=== PATIENT | female | born 1950 | race Caucasian/White ===

== ENCOUNTER 2024-05-12 17:55 | Emergency (ER) | payer OTHER, MEDICAID ==
[~2024-05-12] VITALS: Ht 162.6 cm; Wt 72.6 kg
[2024-05-12] MEDS ORDERED: LORA0.5T48 PO (18:22)
[2024-05-12] MEDS ORDERED: METO-357 PO (18:22)
[2024-05-12] MEDS ORDERED: LEVO125T8 PO (18:22)
[2024-05-12] MEDS ORDERED: ROSU5TAB PO (18:22)
[2024-05-12] MEDS ORDERED: WARF-68 PO (18:22)
[2024-05-12] MEDS ORDERED: SACU1TAB7 PO (18:22)
[2024-05-12] MEDS ORDERED: GABA-532 PO (18:22)
[2024-05-12] MEDS ORDERED: ESCI10TA PO (18:22)
[2024-05-12] MEDS ORDERED: LORAZEPAM 0.5 MG TABLET PO ONE (18:45)
[2024-05-12 18:49] LABS: BASOPHILS % (AUTO) 0.7 % (0.0-2.0); EOSINOPHILS # (AUTO) 0.1 K/uL (0.0-0.7); EOSINOPHILS % (AUTO) 1.6 % (0.0-7.0); HEMATOCRIT 36.9 % (31.2-41.9); HEMOGLOBIN 12.2 g/dL (10.9-14.3); LYMPHOCYTES # (AUTO) 0.9 K/uL (0.8-4.8); LYMPHOCYTES % (AUTO) 14.8 % (20.5-51.5); MEAN CORPUSCULAR HEMOGLOBIN 28.6 uug (24.7-32.8); MEAN CORPUSCULAR HGB CONC 33 g/dL (32.3-35.6); MEAN CORPUSCULAR VOLUME 86.7 fL (75.5-95.3); MONOCYTES # (AUTO) 0.7 K/uL (0.1-1.30); MONOCYTES % (AUTO) 11.3 % (0.0-11.0); NEUTROPHILS # (AUTO) 4.4 K/uL (1.8-8.9); NEUTROPHILS % (AUTO) 71.6 % (38.5-71.5); PLATELET COUNT (AUTO) 208 K/uL (179-408); RED BLOOD CELL COUNT(AUTO) 4.25 MIL/uL (3.63-4.92); RED CELL DISTRIBUTION WIDTH 15.5 % (12.3-17.7); WHITE BLOOD COUNT (AUTO) 6.2 K/uL (3.8-11.8)
[2024-05-12 18:50] LABS: *BILIRUBIN,URIN NEGATIVE (NEGATIVE); *BLOOD, URINE 1+ (NEGATIVE); *CLARITY,URINE CLEAR (CLEAR); *COLOR,URINE LIGHT YELLOW (YELLOW); *KETONES,URINE TRACE (NEGATIVE); *PROTEIN,URINE NEGATIVE (NEGATIVE); *UROBILINOGEN,URINE 0.2 E.U./dl (NORMAL); LEUKOCYTE ESTERASE ,URINE NEGATIVE (NEGATIVE); NITRITE, URINE NEGATIVE (NEGATIVE); PH,URINE 5.5 (5.0-8.0); UGLUCOSE NEGATIVE (NEGATIVE)
[2024-05-12 18:52] LABS: DIFFERENTIAL COMMENT 1
[2024-05-12] MEDS ORDERED: LORAZEPAM 0.5 MG TABLET ONE (18:52)
[2024-05-12 19:01] LABS: *AMPHETAMINE, URINE NEGATIVE (NEGATIVE); *BARBITURATE, URINE NEGATIVE (NEGATIVE); *BENZODIAZEPINE, URINE NEGATIVE (NEGATIVE); *CANNABINOID, URINE NEGATIVE (NEGATIVE); *COCCAINE, URINE NEGATIVE (NEGATIVE); *OPIATE, URINE NEGATIVE (NEGATIVE); *PHENCYCLIDINE SCREEN,URINE NEGATIVE (NEGATIVE); FENTANYL, URINE NEGATIVE (NEGATIVE)
[2024-05-12 19:02] LABS: CARBON DIOXIDE 21 mmol/L (21-32); CHLORIDE 103 mmol/L (98-107); CREATININE 0.6 mg/dL (0.6-1.3); GLUCOSE 103 mg/dL (74-106); POTASSIUM 3.2 mmol/L (3.5-5.1); SODIUM SERUM 139 mmol/L (136-145); UREA NITROGEN, BLOOD 4 mg/dL (7-18)
[2024-05-12 19:04] LABS: ETHANOL < 3 MG/DL (0-10)
[2024-05-12 19:13] LABS: BACTERIA,URINE NONE SEEN /HPF (NONE SEEN); RBC,URINE 0-3 /HPF (0-3); SQUAMOUS EPITHELIAL CELL,UR FEW /HPF (NONE SEEN); WBC,URINE 0-3 /HPF (0-3)
[2024-05-12 19:15] LABS: THYROID STIMULATING HORMONE 0.025 mIU/mL (0.358-3.740)
[2024-05-12 19:18] LABS: ALANINE AMINOTRANSFERASE 35 U/L (14-59); ALBUMIN 3.3 g/dL (3.4-5.0); ALKALINE PHOSPHATASE 86 U/L (50-136); ASPARTATE AMINOTRANSFERASE 24 U/L (15-37); BILIRUBIN,DIRECT 0.4 mg/dL (0.0-0.2); BILIRUBIN,TOTAL 1.2 mg/dL (0.2-1.0); TOTAL PROTEIN, SERUM 6.9 g/dL (6.4-8.2)
[2024-05-12] MEDS: LORAZEPAM 0.5 MG TABLET PO ONE (19:18)
[2024-05-12 19:19] LABS: ACETAMINOPHEN < 2.0 ug/mL (10-30)
[2024-05-12] MEDS ORDERED: ASPIRIN 81 MG TAB.CHEW ONE (19:47)
[2024-05-12] MEDS ORDERED: NITROGLYCERIN OINT 1 GM PACKET TP ONE (19:47)
[2024-05-12 19:54] VITALS: BP 164/78
[2024-05-12] MEDS: ASPIRIN 81 MG TAB.CHEW PO ONE (19:54)
[2024-05-12] MEDS: NITROGLYCERIN OINT 1 GM PACKET TP ONE (19:54)
[2024-05-12 23:00] VITALS: O2SAT 99
== END 2024-05-13 00:25 | disposition short-term general hospital (02) ==
LOC: ER 17:58
DX: I21.4 Non-ST elevation (NSTEMI) myocardial infarction (principal); R45.851 Suicidal ideations; I48.20 Chronic atrial fibrillation, unspecified; D68.32 Hemorrhagic disorder due to extrinsic circulating anticoagulants; F32.A Depression, unspecified; Z98.890 Other specified postprocedural states; Z79.899 Other long term (current) drug therapy; T45.515A Adverse effect of anticoagulants, initial encounter; Y92.89 Other specified places as the place of occurrence of the external cause
CPT/HCPCS: 36415; 71045; 84443; 84484; 85025; 85610; 93005; A4606; A4663; G0480